=== PATIENT | male | born 1980 | race African-American/Black ===

== ENCOUNTER 2016-09-11 20:33 | Emergency (ER) | payer MEDICAID ==
[~2016-09-11] VITALS: Ht 190.5 cm; Wt 102.1 kg
[2016-09-11 20:40] VITALS: BP 129/89; PULSE 112; RESP 18; TEMP 98.3; O2SAT 99
--- NOTE | 2016-09-11 20:45 | NUR ---
Placed in hallway To gown for exam. Side rails up. Report given to Aracelis Ndiaye
[2016-09-11] MEDS ORDERED: NACL 0.9% 1,000 ML IV ONE ×2 (20:51→22:00)
--- NOTE | 2016-09-11 20:55 | NUR ---
# 20 gauge angiocath placed to lac. Use of asceptic technique. Opsite placed over site. Blood return noted. Blood for lab drawn from site. Flushed with 10 cc of normal saline. No evidence of infiltration noted. Patient tolerated well.
[2016-09-11] MEDS ORDERED: MAG HYDROX/AL HYDROX/SIMETH 30 ML, BELLADONNA ALKALOIDS/PHENOBARB 10 ML, LIDOCAINE VISC... PO ONE ×3 (21:00)
[2016-09-11] MEDS ORDERED: PROMETHAZINE HCL 25 MG/ML AMP IVP ONE (21:00)
--- NOTE | 2016-09-11 21:00 | NUR ---
pt. to er by [facility] [id number] c/o epigastric pain 04/20 , states that he was seen at [facility] for epigastric pain 1 week ago, as per ems they found him on streets, pt. agrees that he called 911, denies n/v/d, vital signs stable
--- NOTE | 2016-09-11 21:19 | NUR ---
PT. OUT TO X RAY VIA [facility] WITH [facility]IANA
[2016-09-11 21:24] LABS: CALCIUM 9.4 mg/dL (8.4-11.0); CHLORIDE 105 mmol/L (98-107); GLUCOSE 120 mg/dL (70-99); POTASSIUM 4.7 mmol/L (3.5-5.1); SODIUM SERUM 136 mmol/L (136-145); UREA NITROGEN, BLOOD 13 mg/dL (8-21)
[2016-09-11 21:25] LABS: MEAN CORPUSCULAR VOLUME 87 fL (79.0-98.0)
[2016-09-11 21:28] LABS: ALANINE AMINOTRANSFERASE 26 U/L (12-78); ALBUMIN 3.6 g/dL (3.4-4.8); AMYLASE 38 U/L (0-100); ASPARTATE AMINOTRANSFERASE 16 U/L (10-37); LIPASE 89 U/L (73-393); TOTAL BILIRUBIN 0.3 mg/dL (0.0-1.0); TOTAL PROTEIN, SERUM 7.4 g/dL (6.4-8.3)
[2016-09-11 21:29] LABS: INR 1.1 (0.80-1.20); PROTHROMBIN TIME 11.6 SECS (9.5-12.5)
[2016-09-11 21:30] LABS: HEMOGLOBIN 13.3 g/dL (14.0-18.0); MEAN CORPUSCULAR HEMOGLOBIN 30 pg (27-31); MEAN CORPUSCULAR HGB CONC 34 % (32-36); PLATELET COUNT (AUTO) 331 K/uL (130-430); RED BLOOD CELL COUNT(AUTO) 4.51 MIL/uL (4.2-6.2); RED CELL DISTRIBUTION WIDTH 13.1 % (9.0-15.0); WHITE BLOOD COUNT (AUTO) 17.3 K/uL (4.8-10.8)
--- NOTE | 2016-09-11 21:30 | NUR ---
pt. back from X Ray via [facility]
[2016-09-11 21:36] LABS: ANION GAP < 3 (5-15); GFR AFRICAN AMERICAN 87 mL/min (>90)
[2016-09-11 21:44] LABS: BAND % (MANUAL) 6 % (0-6); BASOPHILS % (MANUAL) 0 % (0-2); EOSINOPHILS % (MANUAL) 0 % (0-7); LYMPHOCYTES % (MANUAL) 4 % (20-46); MONOCYTES % (MANUAL) 1 % (0-11)
[2016-09-11] MEDS ORDERED: cefTRIAXone 2 GM VIAL ONE (22:11)
--- NOTE | 2016-09-11 22:14 | NUR ---
dr. dawn at bedside explaining the plan of care to pt. . pt. verbalizes comfort states no plain at this time
--- NOTE | 2016-09-11 23:26 | NUR ---
Patient given written and verbal discharge instructions and verbalizes understanding. Patient is awake, alert and oriented. Ambulatory with steady gait. Refuses offer of [facility] placement. Given list of available shelters in surrounding areas.
[2016-09-11 23:27] VITALS: BP 125/81; PULSE 91; RESP 18; TEMP 98.5; O2SAT 97
--- NOTE | 2016-09-11 23:27 | NUR ---
Patient given written and verbal discharge instructions and verbalizes understanding. ER MD Osuna discussed with patient the results and treatment provided. Patient in stable condition. ID arm band removed. IV catheter removed intact and dressing applied, no active bleeding. Rx of ranitidine & tylenol given. Patient educated on pain management and to follow up with PMD. Pain Scale 0/10. Opportunity for questions provided and answered.
== END 2016-09-11 23:27 | disposition home or self-care (01) ==
LOC: SED 20:33
DX: K21.9 Gastro-esophageal reflux disease without esophagitis (principal); R11.10 Vomiting, unspecified
CPT/HCPCS: 36415; 74176; 80053; 82150; 83605; 83690; 85007; 85027; 85610; 85730; 87040; 96361; 96365; 96375; 99285; J0696; J2001; J2550; J7030; J7060